=== PATIENT | female | born 1995 | race Caucasian/White ===

== ENCOUNTER 2019-11-05 08:55 | Inpatient (IN) | payer MEDICAID ==
[2019-11-05] MEDS ORDERED: RINGERS SOLUTION,LACTATED 1,000 ML IV ONE (09:25)
[2019-11-05] MEDS ORDERED: RINGERS SOLUTION,LACTATED 1,000 ML IV PRN (09:25)
[2019-11-05] MEDS ORDERED: OXYTOCIN 10 UNIT/ML VIAL ONE (09:42)
[2019-11-05] MEDS ORDERED: LIDOCAINE 1% INJ-PF (10 MG/ML) 30 ML SDV ONE (09:42)
[2019-11-05] MEDS ORDERED: MISOPROSTOL 0.2 MG TABLET ONE (09:42)
[2019-11-05] MEDS ORDERED: OXYTOCIN/NORMAL SALINE 20 UNIT/1,000 ML RTUINJ ONE (09:43)
--- NOTE | 2019-11-05 09:43 | Admission Physical ---
Datetime Report Generated by CPN: 11/05/2019 09:43 CURRENT ADMISSION Chief Complaint: Uterine Contractions; Suspected Ruptured Membranes Indication for Induction: Not Applicable Admit Impression : Term, Intrauterine ; Active Labor Admit Plan: Admit to Unit; Initiate Labor Protocol ALLERGIES Medication Allergies: No Medication Allergies: No Known Allergies (07/09/2015) Latex: No Latex Allergies OBSTETRICAL HISTORY EDC: 11/12/2019 00:00 : 3 Para: 1 Term: 1 : 0 SAB: 0 IAB: 1 Ectopic: 0 Livin Cesareans: 0 VBACs: 0 Multiple Births: 0 SEE RECORDS Alcohol: No Marijuana : No Cocaine: No Other Illicit Drugs: No Cigarettes: Former Smoker. [id number] Cigarette Comments: Stopped smoking @ 6 months; 1/2 ppd PHYSICAL EXAM General: Normal HEENT: Normal Neurologic: Normal Thyroid: Deferred Heart: Normal Lungs: Normal Breast: Deferred Back: Normal Abdomen: Normal Genitourinary Exam: Normal Extremities: Normal DTRs: Normal Pelvic Type: Adequate Physical Exam Comments: pelvis proven to 8#15o. Vital Signs: Reviewed VAGINAL EXAM Dilatation: 7 Effacement: 80 Station: -2 Contraction Comments: q 3 MEMBRANES Membranes: Intact FETUS A EGA: 39.0 Monitoring: External US FHR- Baseline: 145 Variability: Moderate 6-25bpm Accelerations: 15X15 Decelerations: None Presentation: Vertex Admit Comment: 23yo at 39+0ega (h/o EAB) presents with regular uterine contractions. She is now 7cm will admit her. She is undecided regarding epidural. She has a proven pelvis to 8#15oz. Baby is planned to be given up for adoption. late care. H/o precipitous delivery. Adoptive parents are coming from [place]. GBS negative. Admit for acitve labor and augment if needed. Anticipate . PLANS FOR LABOR AND DELIVERY Labor and Delivery: Plan Pain Management: None Feeding Preference: Formula Benefit of Breast Feed Discussed: Yes Circumcision: N/A INFORMED CONSENT Informed Consent Obtained: Vaginal Delivery; Risks, Benefits and Alternatives Discussed Signature: with User ID: [email or web address]
[2019-11-05] MEDS ORDERED: EPHEDRINE SULFATE INJ 50 MG/1 ML AMPULE ONE (09:47)
[2019-11-05] MEDS ORDERED: BUPIVACAINE HCL 0.25 % INJ/PF (2.5 MG/1 ML) 30 ML VIAL ONE (09:47)
[2019-11-05] MEDS ORDERED: FENTANYL/BUPIVACAINE/NS/PF 300 MCG/150 ML RTUINJ EPI ONE (09:47)
[2019-11-05 09:53] LABS: ABSOLUTE EOSINOPHILS # (AUTO) 0.1 10^3/uL (0.0-0.6); ABSOLUTE LYMPHOCYTES (AUTO) 1.1 10^3/uL (0.5-4.7); ABSOLUTE MONOCYTES (AUTO) 0.5 10^3/uL (0.1-1.4); ABSOLUTE NEUT (AUTO) 7.9 10^3/uL (1.7-8.2); BASOPHILS % (AUTO) 0.3 % (0-2); EOSINOPHILS % (AUTO) 0.8 % (0-6); HEMATOCRIT 31.5 % (36.0-47.0); HEMOGLOBIN 10.5 g/dL (12.0-15.5); LYMPHOCYTES % (AUTO) 11.6 % (13-45); MEAN CORPUSCULAR HEMOGLOBIN 27.8 pg (27.0-33.4); MEAN CORPUSCULAR HGB CONC 33.4 g/dL (32.0-36.0); MEAN CORPUSCULAR VOLUME 83 fl (80-97); MONOCYTES % (AUTO) 4.9 % (3-13); PLATELET COUNT 204 10^3/uL (150-450); RED BLOOD COUNT 3.77 10^6/uL (3.72-5.28); SEGMENTED NEUTROPHILS % (AUTO) 82.4 % (42-78); TOTAL CELLS COUNTED % (AUTO) 100 %; WHITE BLOOD COUNT 9.6 10^3/uL (4.0-10.5)
[2019-11-05 11:20] LABS: APPEARANCE,URINE CLOUDY; BILIRUBIN,URINE NEGATIVE (NEGATIVE); COLOR,URINE YELLOW; GLUCOSE, URINE NEGATIVE (NEGATIVE); KETONES,URINE NEGATIVE (NEGATIVE); LEUKOCYTE ESTERASE,URINE NEGATIVE (NEGATIVE); NITRITE,URINE NEGATIVE (NEGATIVE); PROTEIN,URINE NEGATIVE (NEGATIVE); URINE SPECIFIC GRAVITY 1.017; UROBILINOGEN,URINE NEGATIVE mg/dL (<2.0)
[2019-11-05 11:37] LABS: URINE AMPHETAMINES SCREEN NEGATIVE; URINE BARBITURATES SCREEN NEGATIVE; URINE BENZODIAZEPINES SCREEN NEGATIVE; URINE COCAINE SCREEN NEGATIVE; URINE MARIJUANA (THC) SCREEN NEGATIVE; URINE METHADONE SCREEN NEGATIVE; URINE PHENCYCLIDINE SCREEN NEGATIVE
[2019-11-05] MEDS ORDERED: ACETAMINOPHEN 325 MG TABLET PO PRN (13:06)
[2019-11-05] MEDS ORDERED: ZOLPIDEM TARTRATE 5 MG TABLET PO PRN (13:06)
[2019-11-05] MEDS ORDERED: PSEUDOEPHEDRINE HCL 30 MG TABLET PO PRN (13:06)
[2019-11-05] MEDS ORDERED: ACETAMINOPHEN WITH CODEINE #3 TABLET PO PRN ×2 (13:06)
[2019-11-05] MEDS ORDERED: DIBUCAINE 1% OINTMENT 28 GM TP PRN (13:06)
[2019-11-05] MEDS ORDERED: NA PHOS,M-B/NA PHOS,DI-BA (ADULT) 133 ML ENEMA PR PRN (13:06)
[2019-11-05] MEDS ORDERED: PROMETHAZINE HCL INJ 25 MG/1 ML VIAL IV PRN (13:06)
[2019-11-05] MEDS ORDERED: MAGNESIUM HYDROXIDE SUSP 30 ML UDCUP PO PRN (13:06)
[2019-11-05] MEDS ORDERED: MEASLES,MUMPS&RUBELLA VACC/PF 0.5 ML VIAL SUBCUT PRN (13:06)
[2019-11-05] MEDS ORDERED: BENZOCAINE/MENTHOL AEROSOL SPRAY 56 ML TOP PRN (13:06)
[2019-11-05] MEDS ORDERED: PROMETHAZINE HCL 25 MG SUPP.RECT PR PRN (13:06)
[2019-11-05] MEDS ORDERED: DIPH/PERTUSS(ACELL)/TETANUS VAC/PF 0.5 ML SYR (>=10YO) IM PRN (13:06)
[2019-11-05] MEDS ORDERED: DIPHENHYDRAMINE HCL 25 MG CAPSULE PO PRN (13:06)
[2019-11-05] MEDS ORDERED: PROMETHAZINE HCL 25 MG TABLET PO PRN (13:06)
[2019-11-05] MEDS ORDERED: OXYTOCIN/NORMAL SALINE 20 UNIT/1,000 ML RTUINJ IV PRN (13:06)
[2019-11-05] MEDS ORDERED: GLYCERIN/WITCH HAZEL LEAF 1 EACH MED..WIPE TP PRN (13:06)
[2019-11-05] MEDS ORDERED: CEFAZOLIN 2 GM/D5W RTU 2 GM/50 ML RTUPB IV PRN (13:55)
[2019-11-05] MEDS ORDERED: IBUPROFEN 800 MG TABLET ONE (14:20)
[2019-11-05] MEDS ORDERED: CEFAZOLIN INJ 1 GM VIAL ONE (14:21)
[2019-11-05] MEDS: IBUPROFEN 800 MG TABLET PO SCH ×2 (14:32→22:10)
--- NOTE | 2019-11-05 15:07 | Delivery Summary ---
Del Sum A-C Datetime Report Generated by CPN: 11/05/2019 15:06 DELIVERY PERSONNEL DELIVERY PERSONNEL: [id number] Nurse Rn Clinical Resource Certified:: Leigha Rivas CNM Labor and Delivery Nurse:: Daily Cosme RNbusiness management consultant Nurse:: RAFAEL Jacobs Nursery Nurse:: Jael Ball RN Cold Press Loader/VENEER GLUE JOINTER FEEDBACK: Melida Hayes, ST MATERNAL INFORMATION Delivery Anesthesia: Epidural Medications After Delivery: Pitocin Bolus-Please Comment Meds After Delivery Comment: 20 Units Pitocin/1000ml NS Delivery QBL: 100 Maternal Complications: None Provider Comments: Started pushing at +3, viable female over intact perineum, OA to LENNIE, cord clamped and cut and given to Jael Lizzy, baby cleaned and given back to mother, mom holding baby, up for adoption Spontaeous delivery of placenta, lobe missing and trailing membranes, Dr. Segura called to explore uterus with menbranes and placenta removed, FFFM, scant bleeding Mother and baby doing well Adoptive parents on the way in from [place] of state LABOR SUMMARY EDC: 11/12/2019 00:00 No. Babies in Womb: 1 Attempted: No Labor Anesthesia: Epidural LABOR INFORMATION Reason for Induction: Not Applicable Onset of Labor: 11/05/2019 06:00 Complete Dilatation: 11/05/2019 12:40 Oxytocin: N/A Group B Beta Strep: Negative Antibiotics # of Doses: n/a Antibiotics Time of Last Dose: n/a Name of Antibiotic Given: n/a Steroids Given: None Reason Steroids Not Administered: Not Applicable MEMBRANES Membranes Rupture Method: Spontaneous Rupture of Membranes: 11/05/2019 07:30 Length of Rupture (hr): 5.47 Amniotic Fluid Color: Clear Amniotic Fluid Amount: Moderate Amniotic Fluid Odor: Normal STAGES OF LABOR Stage 1 hr: 6 Stage 1 min: 40 Stage 2 hr: 0 Stage 2 min: 18 Stage 3 hr: 0 Stage 3 min: 7 Total Time in Labor hr: 7 Total Time in Labor min: 5 VAGINAL DELIVERY Episiotomy: None Laceration Extension #1: N/A Laceration Repair: Yes Laceration Repair Note: 1 stitch on labia Sponge Count Correct: N/A Sharps Count Correct: N/A BABY A INFORMATION Delivery Date/Time: 11/05/2019 12:58 Method of Delivery: Vaginal Nurse Controlled Delivery: No Born in Route : No : N/A Forceps: N/A Vacuum Extraction: N/A Shoulder Dystocia : No PRESENTATION/POSITION BABY A Presentation: Cephalic Cephalic Presentation: Vertex Vertex Position: Right Occipital Anterior Breech Presentation: N/A PLACENTA INFORMATION BABY A Placenta Delivery Time : 11/05/2019 13:05 Placenta Method of Delivery: Manual Removal Placenta Status: Delivered SCORES BABY A Heart Rate 1 min: >100 bpm Resp Effort 1 min: Good Cry Reflex Irritability 1 min: Cough or Sneeze or Pulls Away Muscle Tone 1 min: Active Motion Color 1 min: Body Mcnary, Extremities Blue Resuscitation Effort 1 min: Tactile Stimulation SCORE 1 MIN: 9 Heart Rate 5 min: >100 bpm Resp Effort 5 min: Good Cry Reflex Irritability 5 min: Cough or Sneeze or Pulls Away Muscle Tone 5 min: Active Motion Color 5 min: Body Mcnary, Extremities Blue Resuscitation Effort 5 min: Tactile Stimulation SCORE 5 MIN: 9 INFORMATION BABY A Gestational Age at Delivery: 39.0 Gestational Status: Full Term- 39- 40.6 Weeks Outcome : Liveborn Condition : Stable Infant Sex: Female WEIGHT/LENGTH BABY A Birthweight (gm): 3450 Weight (lb): 7 Infant Weight (oz): 10 Length (in): 19.75 Infant Length (cm): 50.17 CORD INFORMATION BABY A No. Cord Vessels: 3 Nuchal Cord : N/A Cord Blood Taken: Yes-For Storage (Mom's Blood type +) Suction: Mouth; Nose ASSESSMENT BABY A Skin to Skin: No BABY B INFORMATION : N/A
[2019-11-05] MEDS ORDERED: DOCUSATE SODIUM 100 MG CAPSULE PO SCH (18:00)
[2019-11-05] MEDS ORDERED: FERROUS SULFATE 325 MG TABLET PO SCH (18:00)
[2019-11-05] MEDS ORDERED: FAMOTIDINE 20 MG TABLET PO SCH (22:00)
[2019-11-06] MEDS: IBUPROFEN 800 MG TABLET PO SCH (05:16)
--- NOTE | 2019-11-06 07:34 | PDOC PROGRESS REPORT ---
Subjective Progress Note for:: 11/06/19 Subjective:: decreased vaginal bleeding/lochia, pain well controlled. waiting for her ride. Reason For Visit: Physical Exam - Physical Exam Vital Signs: Temp Pulse Resp BP Pulse Ox 98.2 F 77 16 121/81 100 11/05/19 19:40 11/05/19 19:40 11/05/19 19:40 11/05/19 19:40 11/05/19 19:40 Intake & Output 11/05/19 11/06/19 11/07/19 06:59 06:59 07:59 Intake Total 900 Balance 900 Weight 66.2 kg General appearance: PRESENT: no acute distress, well-developed, well-nourished Head exam: PRESENT: atraumatic, normocephalic Cardiovascular exam: PRESENT: RRR. ABSENT: diastolic murmur, rubs, systolic murmur Vascular exam: PRESENT: normal capillary refill Rectal exam: PRESENT: deferred Extremities exam: PRESENT: full ROM. ABSENT: calf tenderness, clubbing, pedal e gypsy Neurological exam: PRESENT: alert, awake, oriented to person, oriented to place, oriented to time, oriented to situation, CN II-XII grossly intact. ABSENT: motor sensory deficit Skin exam: PRESENT: dry, intact, warm. ABSENT: cyanosis, rash Result Laboratory Results: 11/05/19 09:40 11/05/19 11/05/19 11/05/19 09:40 09:40 10:45 WBC 9.6 RBC 3.77 Hgb 10.5 L Hct 31.5 L MCV 83 MCH 27.8 MCHC 33.4 RDW 15.0 H Plt Count 204 Seg Neutrophils % 82.4 H Urine Color YELLOW Urine Appearance CLOUDY Urine pH 7.0 Ur Specific [place] 1.017 Urine Protein NEGATIVE Urine Glucose (UA) NEGATIVE Urine Ketones NEGATIVE Urine Blood NEGATIVE Urine Nitrite NEGATIVE Ur Leukocyte Esterase NEGATIVE Blood Type AB POSITIVE Antibody Screen NEGATIVE Assessment & Plan - Diagnosis (1) Active labor at term Is this a current diagnosis for this admission?: Yes Plan: uncomplicated labor. (2) with adoption planned Qualifiers: Trimester: third trimester Qualified Code(s): Z34.93 - Encounter for supervision of normal , unspecified, third trimester Is this a current diagnosis for this admission?: Yes Plan: adoptive parents and agency aware. (3) Retained placenta or amniotic membrane after delivery without hemorrhage Is this a current diagnosis for this admission?: Yes Plan: no hemorrhrage but significant amount of retained placenta. If WBC approp then will discharge to home on antibiotics. (4) Spontaneous rupture of membranes Is this a current diagnosis for this admission?: Yes Plan: SROM - uncomplicated labor (5) Vaginal delivery Is this a current diagnosis for this admission?: Yes Plan: uncomplicated delivery - Time Time Spent with patient: 15-24 minutes Medications reviewed and adjusted accordingly: Yes Anticipated discharge: Home Within: within 24 hours - Inpatient Certification Based on my medical assessment, after consideration of the patient's comorbidities, presenting symptoms, or acuity I expect that the services needed warrant INPATIENT care.: Yes I certify that my determination is in accordance with my understanding of Medicare's requirements for reasonable and necessary INPATIENT services [42 CFR 412.3e].: Yes Medical Necessity: Need Close Monitoring Due to Risk of Patient Decompensation - if WBC count and Hb stable then plan for discharge this am.
[2019-11-06 07:40] LABS: MEAN CORPUSCULAR HEMOGLOBIN 27.7 pg (27.0-33.4); MEAN CORPUSCULAR HGB CONC 33.2 g/dL (32.0-36.0); MEAN CORPUSCULAR VOLUME 84 fl (80-97); PLATELET COUNT 202 10^3/uL (150-450); RED BLOOD COUNT 3.95 10^6/uL (3.72-5.28); RED CELL DISTRIBUTION WIDTH 15.2 % (11.5-14.0); WHITE BLOOD COUNT 8.6 10^3/uL (4.0-10.5)
[2019-11-06 07:41] VITALS: BP 136/76
--- NOTE | 2019-11-06 08:09 | PDOC DISCHARGE SUMMARY ---
Impression - Admit/DC Date/PCP Admission Date/Primary Care Provider: 11/05/19 09:27 Discharge Date: 11/06/19 - Discharge Diagnosis (1) Active labor at term Is this a current diagnosis for this admission?: Yes (2) with adoption planned Is this a current diagnosis for this admission?: Yes (3) Retained placenta or amniotic membrane after delivery without hemorrhage Is this a current diagnosis for this admission?: Yes (4) Spontaneous rupture of membranes Is this a current diagnosis for this admission?: Yes (5) Vaginal delivery Is this a current diagnosis for this admission?: Yes - Assessment Summary: Admitted for active labor at term with SROM. Uncomplicated but then with significant amount of retained placenta requiring manual extraction. - Additional Information Resuscitation Status: Full Code Discharge Diet: As Tolerated Discharge Activity: Activity As Tolerated, Balance Activity w/Rest, No Lifting Over 10 Pounds [facility] [Provider Group] Prescriptions: Acetaminophen [Tylenol 325 mg Tablet] 650 mg PO Q4HP PRN #120 tablet PRN Reason: Abdominal Cramping Clindamycin HCl 300 mg PO Q6 #40 capsule Docusate Sodium [Colace 100 mg Capsule] 100 mg PO BID #60 capsule Ferrous Sulfate [Feosol 325 mg Tablet] 325 mg PO BID #60 tablet Simethicone [Gas Relief] 80 mg PO QID PRN 15 Days #60 tab.chew PRN Reason: Ibuprofen [Motrin 800 mg Tablet] 800 mg PO Q8 #90 tablet Home Medications: Vits96/Iron Fum/Folic [ Tablet] 1 each PO DAILY 11/05/19 Acetaminophen [Tylenol 325 mg Tablet] 650 mg PO Q4HP PRN #120 tablet 11/06/19 Clindamycin HCl 300 mg PO Q6 #40 capsule 11/06/19 Docusate Sodium [Colace 100 mg Capsule] 100 mg PO BID #60 capsule 11/06/19 Ferrous Sulfate [Feosol 325 mg Tablet] 325 mg PO BID #60 tablet 11/06/19 Ibuprofen [Motrin 800 mg Tablet] 800 mg PO Q8 #90 tablet 11/06/19 Simethicone [Gas Relief] 80 mg PO QID PRN 15 Days #60 tab.chew 11/06/19 HPI Gestational Age: 39.0 Reason(s) for Admission: Onset of Labor Admission Note: Admitted for active labor at term with SROM. Uncomplicated but then with significant amount of retained placenta requiring manual extraction. Procedures: NST, Ultrasound Intrapartum Procedure(s): Spontaneous Vaginal Delivery Complication(s): Laceration-Labial Hospital Course Hospital Course: Admitted for active labor at term with SROM. Uncomplicated but then with significant amount of retained placenta requiring manual extraction. Results Laboratory Results: WBC 8.6 10^3/uL (4.0-10.5) 11/06/19 07:14 RBC 3.95 10^6/uL (3.72-5.28) 11/06/19 07:14 Hgb 11.0 g/dL (12.0-15.5) L 11/06/19 07:14 Hct 33.0 % (36.0-47.0) L 11/06/19 07:14 MCV 84 fl (80-97) 11/06/19 07:14 MCH 27.7 pg (27.0-33.4) 11/06/19 07:14 MCHC 33.2 g/dL (32.0-36.0) 11/06/19 07:14 RDW 15.2 % (11.5-14.0) H 11/06/19 07:14 Plt Count 202 10^3/uL (150-450) 11/06/19 07:14 Lymph % (Auto) 11.6 % (13-45) L 11/05/19 09:40 [place] % (Auto) 4.9 % (3-13) 11/05/19 09:40 Eos % (Auto) 0.8 % (0-6) 11/05/19 09:40 Baso % (Auto) 0.3 % (0-2) 11/05/19 09:40 Absolute Neuts (auto) 7.9 10^3/uL (1.7-8.2) 11/05/19 09:40 Absolute Lymphs (auto) 1.1 10^3/uL (0.5-4.7) 11/05/19 09:40 Absolute Monos (auto) 0.5 10^3/uL (0.1-1.4) 11/05/19 09:40 Absolute Eos (auto) 0.1 10^3/uL (0.0-0.6) 11/05/19 09:40 Absolute Basos (auto) 0.0 10^3/uL (0.0-0.2) 11/05/19 09:40 Seg Neutrophils % 82.4 % (42-78) H 11/05/19 09:40 Urine Color YELLOW 11/05/19 10:45 Urine Appearance CLOUDY 11/05/19 10:45 Urine pH 7.0 (5.0-9.0) 11/05/19 10:45 Ur Specific [place] 1.017 11/05/19 10:45 Urine Protein NEGATIVE mg/dL (NEGATIVE) 11/05/19 10:45 Urine Glucose (UA) NEGATIVE mg/dL (NEGATIVE) 11/05/19 10:45 Urine Ketones NEGATIVE mg/dL (NEGATIVE) 11/05/19 10:45 Urine Blood NEGATIVE (NEGATIVE) 11/05/19 10:45 Urine Nitrite NEGATIVE (NEGATIVE) 11/05/19 10:45 Urine Bilirubin NEGATIVE (NEGATIVE) 11/05/19 10:45 Urine Urobilinogen NEGATIVE mg/dL (<2.0) 11/05/19 10:45 Ur Leukocyte Esterase NEGATIVE (NEGATIVE) 11/05/19 10:45 Urine Ascorbic Acid NEGATIVE (NEGATIVE) 11/05/19 10:45 Membranes Rupture POSITIVE (NEGATIVE) H 11/05/19 09:16 Urine Opiates Screen NEGATIVE 11/05/19 10:45 Urine Methadone Screen NEGATIVE 11/05/19 10:45 Ur Barbiturates Screen NEGATIVE 11/05/19 10:45 Ur Phencyclidine Scrn NEGATIVE 11/05/19 10:45 Ur Amphetamines Screen NEGATIVE 11/05/19 10:45 U Benzodiazepines Scrn NEGATIVE 11/05/19 10:45 Urine Cocaine Screen NEGATIVE 11/05/19 10:45 U Marijuana (THC) Screen NEGATIVE 11/05/19 10:45 Blood Type AB POSITIVE 11/05/19 09:40 Antibody Screen NEGATIVE 11/05/19 09:40
[2019-11-06] MEDS ORDERED: PRENATAL VITAMIN W DHA CAPSULE PO SCH (10:00)
[2019-11-06] MEDS ORDERED: SENNOSIDES/DOCUSATE 8.6-50 MG 1 EACH TABLET PO SCH (10:00)
== END 2019-11-06 08:35 | disposition home or self-care (01) | DRG 807 ==
LOC: LC 08:55 → LR 09:27 → 2S 15:30
PROVIDERS: ADMIT Student in an Organized Health Care Education/Training Program; ATTEND Student in an Organized Health Care Education/Training Program
PROC: 10D17Z9 Manual Extraction of Products of Conception, Retained, Via Natural or Artificial Opening (ICD-10-PCS; principal; 2019-11-05)
PROC: 10E0XZZ Delivery of Products of Conception, External Approach (ICD-10-PCS; 2019-11-05)
PROC: 0UQMXZZ Repair Vulva, External Approach (ICD-10-PCS; 2019-11-05)
DX: O73.0 Retained placenta without hemorrhage (principal); Z37.0 Single live birth; O70.0 First degree perineal laceration during delivery; Z28.21 Immunization not carried out because of patient refusal; Z87.891 Personal history of nicotine dependence; Z3A.39 39 weeks gestation of pregnancy
CPT/HCPCS: 36415; 80307; 81005; 84112; 85025; 85027; 86592; 86850; 86900; 86901; 88307; 94760; J0690; J2590; J3010; J3490